=== PATIENT | female | born 1975 | race Caucasian/White ===

== ENCOUNTER 2023-07-10 13:46 | Emergency (ER) | payer OTHER, SELFPAY ==
[2023-07-10 13:54] VITALS: BP 149/88; PULSE 110; RESP 18; TEMP 37.3; O2SAT 98
--- NOTE | 2023-07-10 14:07 | ED.URI ---
HPI - URI/Sore Throat General Chief Complaint: Upper Respiratory Infection Stated Complaint: fatigue/cough/chest burn Source: patient and RN notes reviewed Mode of arrival: ambulatory Limitations: no limitations History of Present Illness HPI Narrative: 47-year-old female presented for complaint of sinus congestion, cough, fatigue, and body aches over the past 4 days. Endorses exposure to RSV. She denies shortness of breath, wheezing, nausea, vomiting, diarrhea, fevers or chills. She is taking Mucinex and ibuprofen. MD elicited complaint: cough Related Data Home Medications Medication Instructions Recorded Confirmed amlodipine 10 mg tablet mg 07/10/23 hydrochlorothiazide 25 mg tablet mg 07/10/23 metoprolol succinate 50 mg mg PO 07/10/23 tablet,extended release 24 hr Allergies Allergy/AdvReac Type Severity Reaction Status Date / Time No Known Allergies Allergy Verified 07/10/23 13:50 Review of Systems Review of Systems: CONSTITUTIONAL: Endorses malaise, denies chills, sweats, fever EYES: Denies visual changes, redness, or discharge ENT: Reports rhinorrhea, congestion,denies otalgia, sore throat CARDIOVASCULAR: Denies chest pain, palpitations, edema RESPIRATORY: Reports cough, post nasal drainage. Denies dyspnea GASTROINTESTINAL: Denies abdominal pain, nausea, vomiting, diarrhea SKIN: Denies rash or itching MUSCULOSKELETAL: Endorses myalgia PMFSH Past Medical History Medical History (Updated 07/10/23 @ 14:23 by Kate Dias APRN) HTN (hypertension) Exam Narrative: GENERAL: mildly Ill-appearing, nontoxic no acute distress. EYES: PERRLA, conjunctivae clear ENT: Mucous membranes moist. TM pearly lainez with dull light reflex bilaterally; no tragal tenderness. Oropharynx not erythematous without lesions or exudate, no drooling, no hoarseness, no trismus, uvula midline. CHEST: Clear to auscultation, breath sounds equal. No wheezing, rhonchi, rales, or stridor. No respiratory distress, speaks in full sentences. HEART: Regular rate and rhythm. No murmur heard. SKIN: Warm, dry, no rash. NEURO: Alert and oriented x3. PSYCH: Normal mood and affect Course Course Emergency Course: Patient is aware of diagnosis, understands and agrees to treatment plan. Anticipatory guidance given. Patient agrees to follow-up as directed and is aware of reasons to seek care at the emergency department. Portions of this record may have been created with voice recognition software Level of Care: Express Care Visit Vital Signs Vital signs: Vital Signs Temperature 99.2 F 07/10/23 13:54 Pulse Rate 110 H 07/10/23 13:54 Respiratory Rate 18 07/10/23 13:54 Blood Pressure 149/88 H 07/10/23 13:54 Pulse Oximetry 98 07/10/23 13:54 Oxygen Delivery Room Air 07/10/23 13:54 Temperature 99.2 F 07/10/23 13:54 Pulse Rate 110 H 07/10/23 13:54 Respiratory Rate 18 07/10/23 13:54 Blood Pressure 149/88 H 07/10/23 13:54 Pulse Oximetry 98 07/10/23 13:54 Oxygen Delivery Room Air 07/10/23 13:54 reviewed MDM - URI/Sore Throat MDM Narrative Medical decision making narrative: Discussed physical exam findings and test results. Advised supportive measures and signs/symptoms to go to the ER. Pt is appropriate for outpt treatment and f/u. Differential Diagnosis Differential diagnosis: Likely upper respiratory infection, sinusitis and viral infection Discharge Plan Discharge Clinical Impression: Upper respiratory infection Patient Disposition: Home, Self-Care Condition: Stable Instructions: Antibiotic Form, Upper Respiratory Infection (ED) Additional Instructions: COVID and flu negative. Recommend Flonase spray and Zyrtec (or Claritin/Nuris) over the counter Cough syrup may cause drowsiness; avoid driving or take it at night time. Coricidin HBP if you have hypertension Tylenol 1000mg every 8 hours as needed for pain Symptomatic treatment includes: rest, fluids, an
== END 2023-07-10 14:26 | disposition home or self-care (01) ==
PROVIDERS: Emergency Provider Nurse Practitioner Family; PCP Internal Medicine
DX: J06.9 Acute upper respiratory infection, unspecified (principal); Z20.822 Contact with and (suspected) exposure to COVID-19; I10 Essential (primary) hypertension
CPT/HCPCS: 87426; 87804; 99213; G0463